=== PATIENT | male | born 1960 | race Caucasian/White ===

== ENCOUNTER 2019-04-04 08:06 | Outpatient (CLI) | payer BC ==
--- NOTE | 2019-04-04 12:48 | MRI ---
MRI LUMBAR SPINE WITHOUT CONTRAST: Date: 04/04/2019 INDICATION: Back pain. Radiation to right lower extremity. Comparison made to prior MRI lumbar spine dated 12/24/14. FINDINGS: The lumbar vertebra maintain normal height and alignment. Disc spaces are preserved. There are mild d egenerative changes noted with osteophytes seen at all levels anteriorly. Findings at each disc level are described. At L1-2, mild broad based disc bulge is seen similar to the prior study from 2015. This flattens the anterior thecal sac. There is mild facet hypertrophy. Posterior epidural fat is noted. The bulge is s lightly more pronounced to the right. There is mild central canal stenosis and mild right foraminal e ncroachment. At L2-3, there is mild disc bulge centrally. Disc osteophyte complex is slightly more pronounced to t he left. This flattens the anterior thecal sac on the left and appears to slightly displace the trave rsing left L3 nerve root within the canal. There is left foraminal encroachment and possible contact with the exiting left L2 nerve root as it passes through the foramina. Facet and ligamentous hypertro phy without significant central canal stenosis. At L3-4, mild diffuse disc bulge flattens the anterior thecal sac. Moderate facet and ligamentous hyp ertrophy. Posterior epidural fat. Mild central canal stenosis. Mild bilateral foraminal narrowing sec ondary to disc bulge and facet hypertrophy. Foraminal encroachment is slightly more pronounced on the left. At L4-5, mild diffuse disc bulge. Moderate facet arthrosis and hypertrophy. Minimal central canal verenice nosis. Mild foraminal narrowing due to facet hypertrophy. At L5-S1, no significant disc bulge or protrusion. Facet arthrosis and hypertrophy; however, no signi ficant central canal or foraminal stenosis. IMPRESSION: There are degenerative disc changes with mild posterior disc bulge at lumbar levels as described abov e. Findings are very similar to the MRI of 12/24/14. POS: [facility]
== END 2019-04-04 08:07 | disposition home or self-care (01) ==
LOC: TBSIIMAG 08:06
PROVIDERS: ATTEND Nurse Practitioner Family
DX: M51.16 Intervertebral disc disorders with radiculopathy, lumbar region (principal); M47.26 Other spondylosis with radiculopathy, lumbar region
CPT/HCPCS: 72148

== ENCOUNTER 2019-08-08 10:04 | Outpatient (CLI) | payer BC ==
--- NOTE | 2019-08-08 12:29 | RAD ---
TWO VIEWS OF THE RIGHT KNEE: COMPARISON: None. HISTORY: Right knee pain. FINDINGS: Two views of the right knee show no evidence of acute fracture or dislocation. There is calcificatio n of the medial and lateral menisci consistent with CPPD. No knee effusion is seen. Small patellofe moral osteophytes are seen. IMPRESSION: Mild right knee osteoarthritis. POS: [facility]
== END 2019-08-08 10:05 | disposition home or self-care (01) ==
LOC: BICRAD 10:04
PROVIDERS: ATTEND Nurse Practitioner Family
DX: M25.561 Pain in right knee (principal); M17.11 Unilateral primary osteoarthritis, right knee